=== PATIENT | female | born 1975 ===

== ENCOUNTER 2021-08-01 05:17 | Day surgery (SDC) | payer OTHER ==
[~2021-08-01 05:17] MED LIST: CYMBALTA60 MG; FLOVENT13 G1; JANUVIA50 MG; NEURONTIN600 MG; PROTONIX40 MG; SINGULAIR10 MG; SYNTHROID50 MCG; WELLBUTRIN XL300 MG
[2021-08-01] MEDS ORDERED: NEXIUM20 M1 PO (08:25)
== END 2021-08-01 10:20 | disposition home or self-care (01) ==
LOC: AMB-ENDOS 05:17
PROVIDERS: ATTEND Surgery
DX: K29.50 Unspecified chronic gastritis without bleeding (principal); K44.9 Diaphragmatic hernia without obstruction or gangrene; B96.81 Helicobacter pylori [H. pylori] as the cause of diseases classified elsewhere; Z88.6 Allergy status to analgesic agent; Z91.013 Allergy to seafood; Z88.2 Allergy status to sulfonamides; I10 Essential (primary) hypertension